=== PATIENT | male | born 1950 | race Caucasian/White ===

== ENCOUNTER 2019-09-24 08:59 | Day surgery (SDC) | payer OTHER ==
[~2019-09-24] VITALS: Ht 177.8 cm; Wt 76.0 kg
== END 2019-09-24 11:30 | disposition home or self-care (01) ==
LOC: ORSCSDS 08:59
PROVIDERS: Internal Medicine Gastroenterology
PROC: 0DBK8ZX Excision of Ascending Colon, Via Natural or Artificial Opening Endoscopic, Diagnostic (ICD-10-PCS; principal; 2019-09-24 10:15)
PROC: 0DBN8ZX Excision of Sigmoid Colon, Via Natural or Artificial Opening Endoscopic, Diagnostic (ICD-10-PCS; principal; 2019-09-24 10:15)
PROC: 0DBH8ZX Excision of Cecum, Via Natural or Artificial Opening Endoscopic, Diagnostic (ICD-10-PCS; principal; 2019-09-24 10:15)
DX: Z12.11 Encounter for screening for malignant neoplasm of colon (principal); K63.5 Polyp of colon; D12.0 Benign neoplasm of cecum; D12.2 Benign neoplasm of ascending colon; K64.8 Other hemorrhoids; K57.50 Diverticulosis of both small and large intestine without perforation or abscess without bleeding; Z87.891 Personal history of nicotine dependence
CPT/HCPCS: 88305; J2704

== ENCOUNTER → 2020-06-03 | Outpatient (CLI) | payer OTHER ==
[2020-06-03 18:45] LABS: CHOL/HDL RATIO 2.9; Cholesterol 169 mg/dL (50-200); HDL Cholesterol 59 mg/dL (>39); LDL/HDL RATIO 1.6; Low Density Lipoprotein Chol 92 mg/dL (0-110); Triglycerides 92 mg/dL (30-160); Very Low Density Lipoprot Chol 18 mg/dL (6-32)
== END | disposition home or self-care (01) ==
LOC: LAB 16:46 → LAB SHORT 16:46
PROVIDERS: Nurse Practitioner Family
DX: E78.5 Hyperlipidemia, unspecified (principal)
CPT/HCPCS: 80061

== ENCOUNTER → 2020-06-10 | Outpatient (CLI) | payer OTHER | LOC: LAB 16:52 → LAB SHORT 16:52 | DX: Z11.59 Encounter for screening for other viral diseases (principal) | CPT/HCPCS: 86803 ==

== ENCOUNTER 2021-02-27 08:10 | Emergency (ER) | payer OTHER ==
[~2021-02-27] VITALS: Ht 177.8 cm; Wt 79.4 kg
== END 2021-02-27 10:02 | disposition home or self-care (01) ==
LOC: ER 08:10
DX: S61.012A Laceration without foreign body of left thumb without damage to nail, initial encounter (principal); F17.220 Nicotine dependence, chewing tobacco, uncomplicated; Z23 Encounter for immunization; W45.8XXA Other foreign body or object entering through skin, initial encounter
CPT/HCPCS: 73140; 90471; 90714; 99283-25

== ENCOUNTER → 2021-05-17 | Outpatient (CLI) | payer OTHER ==
[2021-05-17 18:31] LABS: Alanine Aminotransfer (ALT/SGP 31 U/L (12-78); Albumin, Blood 3.7 g/dL (3.4-5.0); Alk Phos 73 U/L (50-136); Anion Gap 5 mmol/L (6-16); Aspartate Aminotrans (AST/SGOT 21 U/L (12-37); Bilirubin, Total 0.7 mg/dL (0.1-1.0); Blood Urea Nitrogen 14 mg/dL (8-24); Bun/Creatinine Ratio 16.4 (12.0-20.0); CHOL/HDL RATIO 3.2; CO2, Blood 25 mmol/L (21-32); Calcium, Blood 9.1 mg/dL (8.5-10.1); Chloride, Blood 108 mmol/L (98-108); Cholesterol 190 mg/dL (50-200); Creatinine, Blood 0.86 mg/dL (0.60-1.20); Globulin, Blood 3.7 g/dL (2.2-4.0); Glomerular Filtration Rate >60 (60-); Glucose, Blood 102 mg/dL (70-99); HDL Cholesterol 60 mg/dL (>39); LDL/HDL RATIO 1.9; Low Density Lipoprotein Chol 116 mg/dL (0-110); Potassium, Blood 4.2 mmol/L (3.5-5.5); Sodium, Blood 138 mmol/L (136-145); Total Protein, Blood 7.4 g/dL (6.4-8.2); Triglycerides 68 mg/dL (30-160); Very Low Density Lipoprot Chol 13 mg/dL (6-32)
== END | disposition home or self-care (01) ==
LOC: LAB SHORT 09:30 → LAB 09:30
PROVIDERS: Nurse Practitioner Family
DX: Z12.5 Encounter for screening for malignant neoplasm of prostate (principal); G25.81 Restless legs syndrome; E78.5 Hyperlipidemia, unspecified
CPT/HCPCS: 80053; 80061; G0103

== ENCOUNTER → 2021-08-15 | Outpatient (CLI) | payer OTHER ==
[2021-08-15 19:10] LABS: PSA, %Free 16.5 %; PSA, Free 0.392 ng/mL
== END ==
LOC: LAB SHORT 16:28
PROVIDERS: Nurse Practitioner Family
DX: R97.20 Elevated prostate specific antigen [PSA] (principal)
CPT/HCPCS: 84153; 84154

== ENCOUNTER → 2023-04-17 | Outpatient (CLI) | payer MEDICARE ==
[2023-04-17 17:07] LABS: BASOPHILS ABSOLUTE AUTO 0.03 K/mm3 (0.00-0.23); BASOPHILS PERCENT AUTO 0 % (0-2); EOSINOPHILS ABSOLUTE AUTO 0.14 K/mm3 (0.00-0.68); EOSINOPHILS PERCENT AUTO 2 % (0-6); Hematocrit 42.7 % (37.0-53.0); Hemoglobin 14.8 g/dL (13.5-17.5); IMMATURE GRAN ABSOLUTE AUTO 0.02 K/mm3 (0.00-0.10); IMMATURE GRAN PERCENT AUTO 0 % (0-1); LYMPHOCYTES ABSOLUTE AUTO 1.64 K/mm3 (0.84-5.20); LYMPHOCYTES PERCENT AUTO 24 % (21-46); MONOCYTES ABSOLUTE AUTO 0.58 K/mm3 (0.16-1.47); MONOCYTES PERCENT AUTO 9 % (4-13); Mean Corpuscular HGB 31.5 pg (26.0-34.0); Mean Corpuscular HGB Conc 34.7 g/dL (31.5-36.5); Mean Corpuscular Volume 91 fL (80-100); Mean Platelet Volume 9.1 fL (9.1-12.4); NEUTROPHILS ABSOLUTE AUTO 4.45 K/mm3 (1.96-9.15); NEUTROPHILS PERCENT AUTO 65 % (41-73); Platelet Count 213 K/mm3 (150-400); RDW Coefficient Variation 12.4 % (11.7-14.2); RDW Standard Deviation 40.8 fL (35.1-46.3); White Blood Cell Count 6.86 K/mm3 (4.00-11.30)
[2023-04-17 18:34] LABS: Alanine Aminotransfer (ALT/SGP 27 U/L (12-78); Albumin/Globulin Ratio 1.1 (0.8-1.8); Alk Phos 74 U/L (50-136); Anion Gap 4 mmol/L (6-16); Aspartate Aminotrans (AST/SGOT 20 U/L (12-37); Bilirubin, Total 0.5 mg/dL (0.1-1.0); Blood Urea Nitrogen 14 mg/dL (8-24); Bun/Creatinine Ratio 15.5 (12.0-20.0); CHOL/HDL RATIO 3.1; CO2, Blood 27 mmol/L (21-32); Calcium, Blood 9.6 mg/dL (8.5-10.1); Chloride, Blood 107 mmol/L (98-108); Cholesterol 200 mg/dL (50-200); Creatinine, Blood 0.91 mg/dL (0.60-1.20); Globulin, Blood 3.5 g/dL (2.2-4.0); Glomerular Filtration Rate 90 (60-); Glucose, Blood 106 mg/dL (70-99); HDL Cholesterol 65 mg/dL (>39); LDL/HDL RATIO 1.9; Low Density Lipoprotein Chol 121 mg/dL (0-110); Potassium, Blood 3.8 mmol/L (3.5-5.5); Sodium, Blood 138 mmol/L (136-145); Total Protein, Blood 7.5 g/dL (6.4-8.2); Triglycerides 72 mg/dL (30-160); Very Low Density Lipoprot Chol 14 mg/dL (6-32)
== END | disposition home or self-care (01) ==
LOC: LAB 14:01 → LAB SHORT 14:01
PROVIDERS: Student in an Organized Health Care Education/Training Program
DX: E78.5 Hyperlipidemia, unspecified (principal)
CPT/HCPCS: 80053; 80061; 85025

== ENCOUNTER → 2025-06-15 | Outpatient (CLI) | payer MEDICARE ==
[2025-06-16 08:32] LABS: BASOPHILS ABSOLUTE AUTO 0.03 K/mm3 (0.00-0.23); BASOPHILS PERCENT AUTO 1 % (0-2); EOSINOPHILS ABSOLUTE AUTO 0.14 K/mm3 (0.00-0.68); EOSINOPHILS PERCENT AUTO 2 % (0-6); Hematocrit 43.5 % (37.0-53.0); Hemoglobin 15.1 g/dL (13.5-17.5); IMMATURE GRAN ABSOLUTE AUTO 0.02 K/mm3 (0.00-0.10); IMMATURE GRAN PERCENT AUTO 0 % (0-1); LYMPHOCYTES ABSOLUTE AUTO 1.21 K/mm3 (0.84-5.20); LYMPHOCYTES PERCENT AUTO 19 % (21-46); MONOCYTES ABSOLUTE AUTO 0.55 K/mm3 (0.16-1.47); MONOCYTES PERCENT AUTO 9 % (4-13); Mean Corpuscular HGB Conc 34.7 g/dL (31.5-36.5); Mean Corpuscular Volume 91 fL (80-100); NEUTROPHILS ABSOLUTE AUTO 4.52 K/mm3 (1.96-9.15); NEUTROPHILS PERCENT AUTO 70 % (41-73); NRBC ABSOLUTE 0.00 K/mm3 (0.00-0.02); NRBC Auto 0.0 /100 WBC (0.0-0.2); Platelet Count 206 K/mm3 (150-400); RDW Coefficient Variation 11.9 % (11.7-14.2); RDW Standard Deviation 39.6 fL (35.1-46.3)
[2025-06-16 10:31] LABS: Alanine Aminotransfer (ALT/SGP 33 U/L (12-78); Albumin, Blood 4.1 g/dL (3.4-5.0); Albumin/Globulin Ratio 1.4 (0.8-1.8); Anion Gap 5 mmol/L (3-11); Aspartate Aminotrans (AST/SGOT 24 U/L (12-37); Bilirubin, Total 0.6 mg/dL (0.1-1.0); Blood Urea Nitrogen 15 mg/dL (8-24); CHOL/HDL RATIO 3.5; CO2, Blood 30 mmol/L (21-32); Calcium, Blood 9.2 mg/dL (8.5-10.1); Chloride, Blood 107 mmol/L (98-108); Cholesterol 190 mg/dL (50-200); Creatinine, Blood 0.91 mg/dL (0.60-1.20); Globulin, Blood 3.0 g/dL (2.2-4.0); Glucose, Blood 103 mg/dL (70-99); HDL Cholesterol 54 mg/dL (>39); LDL/HDL RATIO 1.8; Low Density Lipoprotein Chol 96 mg/dL (0-110); Potassium, Blood 4.1 mmol/L (3.5-5.5); Sodium, Blood 138 mmol/L (136-145); Total Protein, Blood 7.1 g/dL (6.4-8.2); Triglycerides 199 mg/dL (30-160); Very Low Density Lipoprot Chol 39 mg/dL (6-32)
== END ==
LOC: LAB SHORT 12:00 → LAB 12:00
PROVIDERS: Student in an Organized Health Care Education/Training Program
DX: Z00.00 Encounter for general adult medical examination without abnormal findings (principal); I10 Essential (primary) hypertension
CPT/HCPCS: 80053; 80061; 85025